=== PATIENT | male | born 1995 | race Caucasian/White ===

== ENCOUNTER 2016-04-05 09:45 | Emergency (ER) | payer OTHER ==
--- NOTE | 2016-04-05 11:00 | DX ---
Right Shoulder, Three Views April 05, 2016 at 10:37 a.m. Clinical History: 21-year-old male with right shoulder pain after a fall yesterday while skiing. Comparison Study: None. Findings: The glenohumeral and acromioclavicular joints are anatomically aligned. The coracoclavicula r distance is normal. There is some mild downsloping of the acromion process, which may contribute to some impingement anatomy on the rotator cuff. The scapula is intact, as is the right clavicle and th e visualized right rib cage. Impression: There is no acute abnormality. If there is further clinical concern regarding the patient's shoulder pain, consider MR imaging.
--- NOTE | 2016-04-05 11:16 | UCPHY ---
H & P Patient Type: New Smoking Status: Never smoked HPI/ROS: CHIEF COMPLAINT: right shoulder pain HISTORY OF PRESENT ILLNESS: 21-year-old male presents to Urgent Care complaining of right shoulder pain after a fall on his shoulder yesterday while skiing. Patient reports he did strike his head, he was wearing a helmet, no loss of consciousness, denies neck pain, headache, nausea or vomiting. Patient is [id number], denies previous injuries to this arm, pain is worse with range of motion. He denies numbness or tingling to this arm, no other complaints. (Shelia Castillo) Physical Exam: GEN: Awake, alert, oriented, no acute distress RESP: nl resp effort MSK: Right shoulder with full active forward flexion, full abduction, 5/5 strength, mild tenderness to palpation over AC joint, positive Neer, positive Roberts, 2+ radial pulses, sensation intact to light touch SKIN: No break in skin (Shelia Castillo) Constitutional: Initial Vital Signs Temperature (C) 36.4 C 04/05/16 10:14 Heart Rate 60 04/05/16 10:14 Respiratory Rate 14 04/05/16 10:14 Blood Pressure 136/57 H 04/05/16 10:14 O2 Sat (%) 96 04/05/16 10:14 O2 Delivery Mode Room Air Allergies/Adverse Reactions: diphenhydramine HCl [From Benadryl] Allergy (Verified 04/05/16 10:15) ibuprofen [From Motrin] Allergy (Verified 04/05/16 10:15) Home Medications: Medication Instructions Recorded Inhaler, Assist Devices 04/05/16 MDM/Departure - [facility] ED Course/Re-evaluation: The patient was evaluated and managed by the nurse practitioner, Shelia Castillo. My co-signature indicates that I have reviewed this chart and I agree with the findings and plan of care as documented. I am the secondary supervising physician. (Sayda Sanderson) - Depart Disposition: Home, Routine, Self-Care Clinical Impression: Impingement syndrome of right shoulder Condition: Good Instructions: Rotator Cuff Injury (ED) Additional Instructions: Rest, ice, take 600 mg of ibuprofen every 8 hours with food for 5 days. Follow up with orthopedist for pain that is not improving in 7-10 days, return for any worsening symptoms, pain that is not controlled numbness or tingling to your arm , any new symptoms or concerns. Referrals: Erik Almanza MD [Medical Doctor] - As per Instructions (Orthopedist on-call) - PQRS PQRS Measurement: liang (Shelia Castillo)
[2016-04-05 11:23] VITALS: BP 118/58; PULSE 57; RESP 16; TEMP 97.7; O2SAT 95
== END 2016-04-05 11:21 | disposition home or self-care (01) ==
LOC: CED 09:45
DX: M25.511 Pain in right shoulder (principal)
CPT/HCPCS: 73030-PO; 99203-PO; G0463-PO